=== PATIENT | male | born 1985 | race Two or more races ===

== ENCOUNTER 2023-06-02 15:58 | Emergency (ER) | payer SELFPAY ==
[2023-06-02 16:09] VITALS: BP 131/79; PULSE 82; RESP 20; TEMP 36.6; O2SAT 100; BMI 24.3
--- NOTE | 2023-06-02 16:41 | ED.GENADUL1 ---
HPI - General Adult General Chief complaint: Urogenital-Male Stated complaint: Lower Pain Time Seen by Provider: 06/02/23 16:12 Source: patient Mode of arrival: walk-in Limitations: no limitations History of Present Illness HPI narrative: Patient is a To 37-year-old male who is complaining of greenish discharge coming from his urethra this started today. Patient is having unprotected intercourse. Patient has no rash, lesions. Patient is having mild dysuria, no urgency, no frequency. No exposure he is aware of. Patient was with a new female 2 or 3 days ago and having unprotected sex. The female patient has no symptoms that he is aware of. This female friend is also a patient is currently waiting in the waiting room. Patient has no dull pain, nausea or vomiting. Patient started new job. Patient has no type of pants or belts that are rubbing against him to the genitourinary air. No flank pain or back pain. No nausea vomiting. No other acute complaints. Patient has no exposure of any STD, patient believes that he has an implantable cardiac defibrillator of gonorrhea because a greenish drainage. He has no history gonorrhea, he does have history of chlamydia. Patient wants to be treated for STDs. Patient was initially educated this is an emergency room and not an STD clinic. Patient has no PCP. Obi RN was in the room the entire time I was during HPI and physical exam. . All systems are negative except as noted/marked. All systems reviewed and otherwise negative. . Nurses note and vital signs reviewed and patient is not hypoxic. General: The patient appears well and in no apparent distress. Patient is resting comfortably on cart. Patient is not toxic, lethargic, or listless Skin: Warm, dry, no pallor noted. There is no rash noted. No petechiae, purpura. Head: Normocephalic, atraumatic Eye: Normal conjunctiva, no drainage, EOMI. PERRL Ears, Nose, Mouth, and Throat: oral mucosa is moist. Nares patent. Mouth without vesicles. Cardiovascular: Regular Rate and Rhythm, no murmur, gallop, rub Respiratory: Patient is in no distress, no accessory muscle use, lungs are clear to auscultation, no wheezing, rales or rhonchi Back: non-tender, GI: soft, no tenderness to palpation, : Patient is not circumcised, patient has 2 descended testicles. Patient has no actual rash or lesion. Patient has no evidence of any type of drainage coming from the urethral meatus. Urethral Meatus was slowly opened by myself, no drainage was noted inside. Obi KELLY Was at bedside during this entire exam. Musculoskeletal: Patient has full range of motion of all of the extremities, no motor, sensory, or focal neurological deficits Neurological: A&O x3, normal speech Psychiatric: Cooperative Related Data Home Medications Medication Instructions Recorded Confirmed No Known Home Medications 06/02/23 06/02/23 Allergies Allergy/AdvReac Type Severity Reaction Status Date / Time No Known Drug Allergies Allergy Verified 06/02/23 16:14 Exam Constitutional Vital Signs, click to edit/add: Last Vital Signs Temp 97.9 F 06/02/23 16:09 Pulse 82 06/02/23 16:09 Resp 20 06/02/23 16:09 BP 131/79 06/02/23 16:09 Pulse Ox 100 06/02/23 16:09 Course Vital Signs Vital signs: Vital Signs Temperature 97.9 F 06/02/23 16:09 Pulse Rate 82 06/02/23 16:09 Respiratory Rate 20 06/02/23 16:09 Blood Pressure 131/79 06/02/23 16:09 Pulse Oximetry 100 06/02/23 16:09 Temperature 97.9 F 06/02/23 16:09 Pulse Rate 82 06/02/23 16:09 Respiratory Rate 20 06/02/23 16:09 Blood Pressure 131/79 06/02/23 16:09 Pulse Oximetry 100 06/02/23 16:09 Medical Decision Making [facility] Narrative Medical decision making narrative: 9691 I was attempting to perform GC swab, Obi KELLY and was in the room at all times. Patient had no external lesions, patient had no drainage that was visible with squeezing the urethral meatus. Patient initially agreed to the swab, then refuse. Patient would not stay still, patient sat up in bed twice, somewhat pushing me off away from him/bed but not forcefully. Patient ultimately refused to have GC swab. Patient refused ulitmately GC swab after being treated. Pt was upset that I would not just treat him with antibiotics secondary to his drainage. No drainage was visible during physical exam. Patient has no known exposure to anybody the has gonorrhea, chlamydia, patient just thinks he has gonorrhea because he knows. He has had Chlamydia in the past and not gonorrhea. I told the patient is not standard of care to just treat patient with antibiotics and they think he might have an STD. Patient was also educated this is not a STD clinic, but this is an emergency room. He has no PCP, and stated that he will pay for the antibiotics. I told the patient this is not about the money; we need to establish him with a primary skin care specialist or follow-up with the health department or free clinic if needed. Patient ultimately refused swab, I was not going to force myself on him. I told patient I would be back after I went to go see other patients that are currently waiting in the Emergency Room, and I do not know what his wait time will be. 1750 Patient was much more cooperative, understanding, appreciative of care and allowing testing to be done. Again, Obi RN was at bedside entire time, patient did allow the GC swab to be done. This time and I did open the urethral meatus, patient Does have a small trace amount of yellow/clear drainage noted, this was collected during the swab. Patient elected to be treated prophylactically and did not want to wait for a GC swab to come back. Risks and benefits of treating gonorrhea, chlamydia, and trichomonas was discussed. Patient was given IM injection of Rocephin 500 mg, 2000 mg of Flagyl, 1000 mg of azithromycin and Zofran prophylactically. Patient understands of his swabs, positive, he needs to inform all his sexual partners and Need to be treated as well. A she'll understands urine culture is pending. Lab Data Labs: Lab Results 06/02/23 Range/Units 16:14 Urine Color Yellow (YELLOW) Urine Clarity Clear (CLEAR) Urine pH 6.0 (5.0-9.0) Ur Specific [place] 1.025 (1.005-1.025) Urine Protein Negative (NEG/TRACE) mg/dL Urine Glucose (UA) Negative (NEGATIVE) mg/dL Urine Ketones Negative (NEGATIVE) mg/dL Urine Occult Blood Negative (NEGATIVE) Urine Nitrite Negative (NEGATIVE) Urine Bilirubin Negative (NEGATIVE) Urine Urobilinogen 0.2 (0.2-1.0) EU/dL Ur Leukocyte Esterase Small A (NEGATIVE) Urine RBC None seen (0-2) #/HPF Urine WBC 5-10 A (NONE SEEN) #/HPF Ur Squamous Epith Cells Rare (NONE/RARE) #/LPF Urine Crystals None seen (None Seen) #/HPF Urine Bacteria Small A (NONE SEEN) #/HPF Urine Casts None seen (NONE SEEN) #/LPF Urine Mucus Trace A (NONE SEEN) Discharge Plan Discharge Chief Complaint: Urogenital-Male Clinical Impression: Potential exposure to STD, Urethritis Patient Disposition: Home, Self-Care Time of Disposition Decision: 18:22 Condition: Fair Prescriptions / Home Meds: No Action No Known Home Medications Instructions: Chlamydia (ED), Male Condom Use (ED), Safe Sex Practices (ED), Gonorrhea (ED), Trichomoniasis (ED), Urinary Tract Infection in Men (ED) Additional Instructions: Education on appropriate, obese, safe sex practices, along with education on Trichomonas, gonorrhea, chlamydia has been given 2. We are not testing for HIV, syphilis, herpes, or any other STDs, this needs to be done through PCP, health department, or free clinic. If you're swabs come back positive, you need to inform her partners [place] disease today her treated as well. If urine culture comes back positive, we will call you in the appropriate antibiotic. He has been given Rocephin for gonorrhea, Zithromax for chlamydia, and Flagyl for Trichomonas for Treatment for possibilities of what you might have Stand Alone Forms: Portal Instructions Referrals: Physician,Non-Staff, [Primary Care Provider] - 1 week Discharge Date/Time: 06/02/23 18:52
[2023-06-02 16:51] LABS: Bilirubin Urine NEGATIVE (NEGATIVE); Blood Urine NEGATIVE (NEGATIVE); Clarity Urine CLEAR (CLEAR); Color Urine YELLOW (YELLOW); Glucose Urine UA NEGATIVE (NEGATIVE); Ketones Urine NEGATIVE (NEGATIVE); Leukocyte Esterase Urine SMALL (NEGATIVE); Nitrite Urine NEGATIVE (NEGATIVE); Protein Urine NEGATIVE (NEG/TRACE); Specific Gravity Urine 1.025 (1.005-1.025); Urobilinogen Urine 0.2 EU/dL (0.2-1.0)
[2023-06-02 16:59] LABS: Bacteria Urine SMALL #/HPF (NONE SEEN); Crystals Seen? None Seen #/HPF (None Seen); Mucus Urine TRACE (NONE SEEN); RBC Urine NONE SEEN #/HPF (0-2); Squamous Epithelial Cell Urine RARE #/LPF (NONE/RARE)
[2023-06-02 17:00] LABS: Cast Seen? NONE SEEN #/LPF (NONE SEEN)
[2023-06-02] MEDS: METRONIDAZOLE 250 MG TABLET 2000 MG PO (18:44)
[2023-06-02] MEDS: AZITHROMYCIN 250 MG TABLET 1000 MG PO (18:46)
[2023-06-02] MEDS: CEFTRIAXONE 500 MG, LIDOCAINE HCL/PF 1 ML IM (18:47)
[2023-06-02] MEDS: ONDANSETRON 4 MG RAPDIS TABLET SL (18:51)
[2023-06-05 07:10] LABS: Neisseria gonorrhoeae, NAA Negative (Negative)
== END 2023-06-02 18:52 | disposition home or self-care (01) ==
PROVIDERS: Emergency Provider Emergency Medicine
DX: N34.2 Other urethritis (principal); Z20.2 Contact with and (suspected) exposure to infections with a predominantly sexual mode of transmission
CPT/HCPCS: 81001; 87086; 87491; 87591; 99284; J0696; Q0162